=== PATIENT | male | born 1975 | race Caucasian/White ===

== ENCOUNTER 2024-08-11 08:55 | Outpatient (CLI) | payer BC | END 2024-08-11 08:56 | disposition home or self-care (01) | LOC: CSHRAD 08:55 | PROVIDERS: ATTEND Psychiatry & Neurology Neurology | DX: M48.02 Spinal stenosis, cervical region (principal); Q76.49 Other congenital malformations of spine, not associated with scoliosis | CPT/HCPCS: 72040 ==